=== PATIENT | female | born 1985 | race American Indian/Alaskan Native ===

== ENCOUNTER 2019-03-12 19:16 | Emergency (ER) | payer MEDICAID ==
[2019-03-12] MEDS ORDERED: ASPIRIN PO ONE (19:44)
--- NOTE | 2019-03-12 19:46 | Event Note ---
ED Screening Note Date of service: 03/12/19 Time: 19:42 ED Screening Note: This is a 33 y.o. F. that presents to the ER with chest pain since 1000 this morning. PMH of depression Reports pain as sharp, intermittent, last for a few seconds. Current cigarette smoker She took 2 Tylenol 200 mg this morning with minimal improvement of symptoms. This initial assessment/diagnostic orders/clinical plan/treatment(s) is/are subject to change based on patients health status, clinical progression and re- assessment by fellow clinical providers in the ED. Further treatment and workup at subsequent clinical providers discretion. Patient/guardian urged not to elope from the ED as their condition may be serious if not clinically assessed and managed. Initial orders include: Labs, EKG, & CXR
[2019-03-12 20:16] LABS: Hematocrit 30.6 % (30.3-42.9); Hemoglobin 9.5 gm/dl (10.1-14.3); Mean Corpuscular HGB Conc 31 % (30-34); Platelet Count 310 K/mm3 (140-440); Red Blood Count 4.64 M/mm3 (3.65-5.03); Red Cell Distribution Width 19.6 % (13.2-15.2)
[2019-03-12 20:17] LABS: Mean Corpuscular Volume 66 fl (79-97)
--- NOTE | 2019-03-12 20:36 | XRay Report ---
CHEST 1 VIEW INDICATION: Chest Pain. COMPARISON: None. FINDINGS: Support devices: None. Heart: Normal. Lungs/Pleura: No acute pulmonary or pleural findings. IMPRESSION: 1. No acute findings. Signer Name: Oracio Ortega MD Signed: 03/12/2019 8:32 PM Workstation Name: [id number]
[2019-03-12 20:37] LABS: BUN/Creatinine Ratio 12; Blood Urea Nitrogen 7 mg/dL (7-17); Calcium 9.1 mg/dL (8.4-10.2); Hemolysis Index 2
[2019-03-12 20:57] LABS: Basophils % (Manual) 0 % (0.0-1.8); Total Cells Counted 100
[2019-03-12 21:00] LABS: Anisocytosis 1+; Ovalocytes Few; Poikilocytosis 1+; Target Cells Few
--- NOTE | 2019-03-12 21:02 | Emergency Department Report ---
ED Chest Pain HPI - General Chief Complaint: Chest Pain Stated Complaint: CHEST PAIN Time Seen by Provider: 03/12/19 19:42 Source: patient Mode of arrival: Ambulatory Limitations: No Limitations - History of Present Illness Initial Comments: 33 yo F with right sided chest pain since this morning. States pain is sharp, intermittent, lasting only 1-2 seconds. Denies any aggravating or alleviating factors. Denies SOB, fever, cough, leg pain or swelling. MD Complaint: chest pain -: This morning Onset: during rest Pain Location: right chest Pain Radiation: none Severity: moderate Severity scale (0 -10): 7 Quality: sharp Consistency: intermittent Improves With: nothing Worsens With: nothing re: denies: nausea, vomting, diaphoresis, dyspnea Other Symptoms: denies: cough, fever, leg swelling Treatments Prior to Arrival: other (tylenol) - Related Data Previous Rx's Medication Instructions Recorded Last Taken Type Naproxen [Naprosyn] 500 mg PO BID #20 tablet 03/13/19 Unknown Rx Allergies Allergy/AdvReac Type Severity Reaction Status Date / Time fluoxetine [From Prozac] Allergy Hives Verified 03/12/19 19:47 Heart Score - HEART Score History: Slightly suspicious EKG: Normal Age: < 45 Risk factors: 1-2 risk factors Troponin: < normal limit HEART Score: 1 ED Review of Systems ROS: Stated complaint: CHEST PAIN Other details as noted in HPI Comment: All other systems reviewed and negative Constitutional: denies: chills, fever Respiratory: denies: cough, shortness of breath Cardiovascular: chest pain Gastrointestinal: denies: nausea, vomiting Musculoskeletal: other (denies leg pain or swelling) Neurological: headache ED Past Medical Hx - Past Medical History Previous Medical History?: Yes Hx Psychiatric Treatment: Yes (Depression. Anxiety) - Surgical History Past Surgical History?: Yes Additional Surgical History: Gastric Sleeve, Ectopic , Tubal Ligation - Social History Smoking Status: Current Every Day Smoker - Medications Home Medications: Home Medications Medication Instructions Recorded Confirmed Last Taken Type Naproxen [Naprosyn] 500 mg PO BID #20 tablet 03/13/19 Unknown Rx ED Physical Exam - General Limitations: No Limitations General appearance: alert, in no apparent distress - Head Head exam: Present: atraumatic, normocephalic - Eye Eye exam: Present: normal appearance, PERRL, EOMI - ENT ENT exam: Present: mucous membranes moist - Neck Neck exam: Present: normal inspection - Respiratory Respiratory exam: Present: normal lung sounds bilaterally. Absent: respiratory distress - Cardiovascular Cardiovascular Exam: Present: regular rate, normal rhythm - GI/Abdominal GI/Abdominal exam: Present: soft. Absent: distended, tenderness - Extremities Exam Extremities exam: Present: normal inspection. Absent: pedal edema, calf tenderness - Neurological Exam Neurological exam: Present: alert, oriented X3 - Psychiatric Psychiatric exam: Present: normal affect, normal mood - Skin Skin exam: Present: warm, dry, intact, normal color ED Course Vital Signs 03/12/19 03/12/19 03/13/19 19:20 22:00 00:37 Temperature 99.7 F H Pulse Rate 91 H 78 62 Respiratory 20 16 18 Rate Blood Pressure 156/88 Blood Pressure 124/76 137/79 [Right] O2 Sat by Pulse 98 98 99 Oximetry ED Medical Decision Making - Lab Data Result diagrams: 03/12/19 19:51 03/12/19 19:51 - EKG Data -: EKG Interpreted by De EKG shows normal: sinus rhythm, axis, intervals, QRS complexes, ST-T waves Rate: normal - EKG Data Interpretation: no acute changes - Radiology Data Radiology results: report reviewed, image reviewed - Medical Decision Making - shrap, right sided chest pain - normal EKG and troponin x2 - elevated D-dimer, CTA Chest unremarkable - toradol given, pt feelng better - outpt follow-up advised - return precautions given - Differential Diagnosis pleurisy, pneumonia, PE, ACS Critical care attestation.: If time is entered above; I have spent that time in minutes in the direct care of this critically ill patient, excluding procedure time. ED Disposition Clinical Impression: Acute chest pain Disposition: - TO HOME OR SELFCARE Is pt being admited?: No Condition: Stable Instructions: Chest Pain (ED) Prescriptions: Naproxen [Naprosyn] 500 mg PO BID #20 tablet Referrals: LEAH MOYER MD [Primary Care Provider] - 3-5 Days PRIMARY CAREMD [Referring] - 3-5 Days Time of Disposition: 00:09
[2019-03-12 21:43] LABS: INR 0.95 (0.87-1.13)
[2019-03-12 21:44] LABS: Partial Thromboplastin Time 37.7 Sec. (24.2-36.6)
[2019-03-12] MEDS ORDERED: TORADOL IV ONE (21:47)
[2019-03-12] MEDS ORDERED: K-DUR PO ONE (21:48)
--- NOTE | 2019-03-12 23:50 | Cat Scan Report ---
CTA chest with contrast INDICATION : CHEST PAIN SINCE THIS MORNING. TROUBLE BREATHING AT FIRST BUT WENT AWAY. TECHNIQUE: Axial imaging performed through the chest, with contrast bolus timing set to maximize opa cification of the pulmonary arteries. 3-plane MIP reformatted images were obtained. All CT scans at this location are performed using CT dose reduction for ALARA by means of automated exposure control. 100 mL of intravenous contrast administered. COMPARISON: None FINDINGS: Bolus: Contrast bolus timing is adequate. PTE: No filling defect is present to suggest PTE. Mediastinum: Heart and great vessels appear normal. No pathologic mediastinal adenopathy. Lungs: Lungs are clear. Upper abdomen: Limited imaging of the upper abdomen shows nothing acute. Gastric bypass changes are present. Bones: Degenerative changes in the spine with nothing acute. IMPRESSION: Negative for PTE. Clear lungs. Signer Name: Guille Becerra MD Signed: 03/12/2019 11:46 PM Workstation Name: [id number]
[2019-03-13 00:39] VITALS: BP 137/79
== END 2019-03-13 00:40 | disposition home or self-care (01) ==
LOC: ED 19:16
DX: R07.89 Other chest pain (principal); F32.9 Major depressive disorder, single episode, unspecified; F41.9 Anxiety disorder, unspecified; F17.200 Nicotine dependence, unspecified, uncomplicated; Z98.51 Tubal ligation status; Z88.8 Allergy status to other drugs, medicaments and biological substances
CPT/HCPCS: 36415; 71045; 71275; 80048; 84484; 85007; 85025; 85379; 85610; 85730; 93005; 93010; 96374; 99285; J1885; Q9967